=== PATIENT | female | born 1985 | race Caucasian/White ===

== ENCOUNTER → 2016-03-05 | Outpatient (CLI) | payer MEDICAID ==
--- NOTE | 2016-03-05 16:57 | US ---
[facility] Providers, Thank you for sending your patient, Britni Rivera, to us for a follow-up US to assess interval growth and intracranial anatomy. As you know, the patient is a 30 y.o. G 1, P 0 at 32 weeks and 3 da ys with an EDC of 04/27/16 based on a 13 week ultrasound. Her is complicated by Zika exposur e in the 1st trimester and a remote history of maternal cardiomyopathy. Britni has been doing well from a cardiac perspective. She denies any chest pain, shortness of breath, dizziness, or orthopnea. She continues to exercise vigorously in without difficulty. Her e chocardiogram is scheduled for next week. She will have the results faxed to both [facility] and her molecular geneticist ry team. Genetic Screening: NIPT reassuring The patient denies any uterine contractions, vaginal bleeding, or loss of fluid. She reports excellen t movement. Today, she is without complaints. US FINDINGS: Number of fetuses: 1 Placental location: Posterior, no previa presentation: Cephalic Cervix: 3.8 cm, transabdominally MVP: 3.9 cm Measurements: Biparietal diameter: 83 mm, 3 weeks 4 days Head circumference: 310 mm, 4 weeks 5 days Abdominal circumference: 288 mm, 32 weeks 6 days Femur length: 60 mm, 1 weeks 1 days Humerus length: 54 mm, 31 weeks 3 days Transcerebellar diameter: 40 mm, 32 weeks 2 days Cerebral Lateral Ventricle: 3.2 mm Cisterna Magna: 4.2 mm Heart Rate: 139 bpm Average ultrasound age: 33 weeks 1 days Estimated weight: 1992 g weight percentile: 42 % Anatomy: anatomy was previously assessed. Today the following structures were visualized and appeared n ormal: lateral ventricles, posterior fossa, 4CH view and outflow tracts, stomach, kidneys, and bladde r. IMPRESSION: 1. Growth: The fetus measures appropriate for gestational age, measuring at a normal weight and perce ntile. Visualization of the fetus today reveals no overt structural anomalies. There is evidence of n ormal amniotic fluid, and movement was seen during the examination. 2. Zika Exposure: Today, the head size continues to be normal with no abnormalities of the intr acranial anatomy. We discussed that given her advanced gestational age and remote history of exposure , no further US surveillance is needed as all prior US has been reassuring. 3. Maternal History of Cardiomyopathy: Britni continues to be asymptomatic with excellent exercise bella erance. She will undergo her third trimester maternal echocardiogram next week. If normal cardiac fun ction is noted, then no further MFM follow-up prior to delivery is indicated. However, if any concern s are noted or if Britni develops any new cardiac symptoms, she will need to be evaluated by MFM and C ardiology to determine the safest place for delivery. Additionally, we discussed that the greatest ri sk of recurrent cardiomyopathy is in the period. She will need to be monitored carefully f or any evidence of volume overload, shortness of breath, fatigue, or chest pain. We recommend that sh e seek immediate evaluation for any of these symptoms. Thank you again for sending this patient to see us today. Approximately 15 minutes were spent with th is patient today with 12 minutes of this time spent in direct face to face counseling regarding today 's US findings and our recommendations. Please contact me with any questions at . Ruth Enrique MD Maternal- Medicine
--- NOTE | 2016-03-06 17:26 | US ---
Obstetrical Sonogram Detail Clinical Indications: Advanced maternal age. Evaluate anatomy as well as growth and development in a patient with a history of Zika in her first trimester. Comparison to the prior study January 21 16. Technique: Longitudinal and transverse images are obtained. Dr. Enrique was present for the examinati on. Color Doppler evaluation is employed for assessment of vascularity. Findings: A single fetus is present in vertex presentation. Maternal cervical length is estimated at 3.8 cm. T he amount of amniotic fluid is normal with an MVP of 3.9 cm. The placenta is located posterior with no placenta previa. motion is identified. A full anatomic scan has been performed previously. cardiac activit y is documented with a heart rate estimated at 139 beats per minute. A four-chamber heart view and ou tflow tracts appear normal.. stomach, kidneys and bladder are normal. The lateral ventricles an d posterior fossa appear normal. No abnormality is identified. biometry: Biparietal diameter = 83 mm = 33 weeks 4 days Head circumference = 310 mm = 34 weeks 5 days Abdominal circumference = 288 mm = 32 weeks 6 days Femur length = 60 mm = 31 weeks 1 day Estimated weight 1992 +/- 291 grams. This is at the 42nd percentile based on last menstrual per iod. The estimated delivery date by ultrasound is April 22, 2016. This compares to the clinical date of [facility] 2016. There has been appropriate development from the prior study. Impression: Single live intrauterine gestation with estimated age by ultrasound of 33 weeks 1 days with an estima lissa delivery date of April 22, 2016. No abnormality is identified with continued normal appeara nce of the head. Please see Dr. Enrique's report t for findings and recommendations.
== END ==
LOC: FIMAGING 13:57
PROVIDERS: ATTEND Advanced Practice Midwife
DX: O99.413 Diseases of the circulatory system complicating pregnancy, third trimester (principal); Z3A.32 32 weeks gestation of pregnancy

== ENCOUNTER → 2016-04-05 | Outpatient (CLI) | payer MEDICAID | LOC: FIMAGING 10:38 | DX: K40.90 Unilateral inguinal hernia, without obstruction or gangrene, not specified as recurrent (principal) ==

== ENCOUNTER → 2016-11-20 | Outpatient (CLI) | payer MEDICAID | LOC: FIMAGING 08:27 | DX: K40.90 Unilateral inguinal hernia, without obstruction or gangrene, not specified as recurrent (principal) ==